=== PATIENT | male | born 1945 | race Caucasian/White ===

== ENCOUNTER 2019-08-10 12:13 | Inpatient (IN) | payer MEDICARE, BC ==
[2019-08-10 14:48] LABS: CKMB 3.2 ng/mL (0-6.6)
[2019-08-10] MEDS ORDERED: Acetaminophen 325 MG TAB PO PRN (16:31)
[2019-08-10] MEDS ORDERED: Ondansetron PF 4 MG/2 ML Vial IVP PRN (16:31)
--- NOTE | 2019-08-10 16:52 | PDOC.HHP ---
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 Pt never really had a down time, as his noted immediately when his heart stopped beating and he was started w chest compression at home. EMs showed up a few minutes later and he was taken and treated in [facility] with med mgt. Pt did not get an AICD, not sure why. He was d/c from the hospital to Rehab and d/c from Rehab last weekend. Pt stated he was doing well, till late in the night when he began having SOB, OSBORNE, Orthopnea and coughing. He was uncomfortable and coughed all night and had breathing issues. He denied CP, fever, feet or body swelling or chills. This morning, he called his PCP to complain about his symptoms ad he was told given his recent cardiac arrest he should come to the ER. Upon, presentation to the ER, his CXR noted vascular congestion. Pt was given Lasix and diuresed appropriately. He currently feels better He has been admitted now for further w/u. Hospitalist ROS - Review of Systems Constitutional: denies: fever, chills, sweats, weakness, malaise, other Eyes: denies: pain, vision change, conjunctivae inflammation, eyelid inflammation, redness, other ENT: denies: ear pain, ear discharge, nose pain, nose discharge, nose congestion , mouth pain, mouth swelling, throat pain, throat swelling, other Respiratory: reports: cough, shortness of breath, SOB with excertion. denies: dry, hemoptysis, pleuritic pain, sputum, wheezing, other Cardiovascular: denies: chest pain, palpitations, orthopnea, paroxysmal noc. dyspnea, edema, light headedness, other Gastrointestinal: denies: nausea, vomiting, abdominal pain, diarrhea, constipation, melena, hematochezia, other Genitourinary: denies: dysuria, frequency, incontinence, hematuria, retention, other Musculoskeletal: denies: neck pain, shoulder pain, arm pain, back pain, hand pain, leg pain, foot pain, other Skin: denies: rash, lesions, andrew, bruising, other Neurological: denies: weakness, numbness, incoordination, change in speech, confusion, seizures, other Hospitalist History - Past Medical History Cardiac: reports: CAD, CHF Pulmonary: reports: CVA/TIA/stroke, congestive heart failure - Family History Family History: reports: hypertension - Social History Alcohol: reports: None Living Situation: With Family Domestic Violence: Negative Activity level: independent ambulation - Exam General Appearance: NAD, awake alert Eye: PERRL, anicteric sclera ENT: normocephalic atraumatic, no oropharyngeal lesions, moist mucosa Neck: supple, symmetric, no JVD, no thyromegaly, no lymphadenopathy, no carotid bruit Heart: RRR, no murmur, no gallops, no rubs, normal peripheral pulses Respiratory: CTAB, no wheezes, no rales, no ronchi, normal chest expansion, no tachypnea, normal percussion Gastrointestinal: soft, non-tender, non-distended, normal bowel sounds, no palpable masses, no hepatomegaly, no splenomegaly, no bruit Extremities: no cyanosis, no clubbing, no edema Skin: normal turgor, no lesions, no rashes Neurological: cranial nerve grossly intact, normal sensation to touch, no weakness, no focal deficits, no new deficit Musculoskeletal: normal tone, normal strength, no muscle wasting Psychiatric: normal affect, normal behavior, A&O x 3 Hospitalist Results - Labs Lab results: CK-MB (CK-2) 3.2 ng/mL (0-6.6) 08/10/19 13:57 Troponin I 0.093 ng/mL (< 0.028) H 08/10/19 13:57 Hospitalist H&P A/P - Problem (1) CHF exacerbation Code(s): I50.9 - HEART FAILURE, UNSPECIFIED Status: Acute Assessment and Plan: Pt got Lasix in the ER and feels better. Will cont Lasix and other meds. Will get BNP and Echo and consult his english instructor, Dr Burgos. Will f/u with further recs from cardiology. (2) CAD (coronary artery disease) Code(s): I25.10 - ATHSCL HEART DISEASE OF [place] CORONARY ARTERY W/O ANG PCTRS Status: Acute Assessment and Plan: Pt denies CP but will order CE x 3. Will f/u with results. Cont med mgt (3) Dyslipidemia Code(s): E78.5 - HYPERLIPIDEMIA, UNSPECIFIED Status: Acute Assessment and Plan: Will check FLP. Cont statins. (4) Acute CVA (cerebrovascular accident) Code(s): I63.9 - CEREBRAL INFARCTION, UNSPECIFIED Status: Acute Assessment and Plan: No acute issues. Cont med mgt. (5) H/O ventricular fibrillation Code(s): Z86.79 - PERSONAL HISTORY OF OTHER DISEASES OF THE CIRCULATORY SYSTEM Status: Acute Assessment and Plan: Pt is stable now. Will monitor K and Mg levels, monitor on Tele. Pt may require an AICD. F/u with cardiac recs. - Plan Plan: PPX: Cont SCDs and Lovenox. CODE status: Full. Dispo: Admit as inpatient.
[2019-08-10 17:40] LABS: Cardiac Risk 4.7 (Less than 4.5)
[2019-08-10 17:43] LABS: Troponin I 0.084 ng/mL (< 0.028)
[2019-08-10] MEDS: Furosemide 40 MG/4 ML VIAL SLOW IVP SCH (21:29)
[2019-08-10] MEDS: Ezetimibe 10 MG TAB PO SCH (21:29)
[2019-08-10] MEDS: Atorvastatin Calcium 40 MG TAB PO SCH (21:30)
[2019-08-10 22:58] VITALS: BMI 26.8
[2019-08-11 00:59] LABS: #Basophils 0.1 thou/uL (0.0-0.2); #Eosinphils 0.2 thou/uL (0.0-0.7); #Lymphocytes 1.5 thou/uL (1.20-3.40); #Monocytes 0.9 thou/uL (0.11-0.59); #Neutrophils 7.3 thou/uL (1.40-6.50); %Basophils 0.8 % (0.0-1.0); %Eosinophils 1.8 % (0.0-10.0); %Lymphocytes 14.8 % (21.0-51.0); %Monocytes 8.8 % (0.0-10.0); %Neutrophils 73.8 % (42.0-75.0); Hemoglobin 10.3 g/dL (14.0-18.0); Mean Corpuscular HGB CONC 33.6 g/dL (32.0-36.0); Mean Corpuscular Hemoglobin 31.8 pg (27.0-31.0); Mean Corpuscular Volume 94.7 fL (78.0-98.0); Mean Platelet Volume 6.9 fL (7.4-10.4); Platelet Count 319 thou/uL (130-400); RBC Distribution Width 12.2 % (11.5-14.5); Red Blood Cell (RBC) Count 3.23 mill/uL (4.70-6.10); White Blood Cell (WBC) Count 9.8 thou/uL (4.8-10.8)
[2019-08-11 01:28] LABS: Anion Gap 14 mmol/L (10-20); BUN (Urea Nitrogen) 24 mg/dL (8.4-25.7); Calc. Creatinine Clearance 27 mL/min (70-130); Calcium 8.8 mg/dL (7.8-10.44); Carbon Dioxide 28 mmol/L (23-31); Chloride 99 mmol/L (98-107); Cholesterol 155 mg/dl (< 200 Desired); Estimated GFR-MDRD 22; Glucose 110 mg/dL (83-110); HDL Cholesterol 31 mg/dL (>60 Neg Risk); LDL Cholesterol, Calculated 102 mg/dL; Magnesium 1.7 mg/dL (1.6-2.6); Potassium 3.1 mmol/L (3.5-5.1); Sodium 138 mmol/L (136-145); Triglycerides 110 mg/dL (Less than 150)
[2019-08-11] MEDS ORDERED: Potassium Chloride 20 MEQ TAB PO SCH (02:15)
[2019-08-11] MEDS ORDERED: Enoxaparin Sodium 30 MG/0.3 ML SYRINGE SC SCH (09:00)
[2019-08-11] MEDS: Furosemide 40 MG/4 ML VIAL SLOW IVP SCH ×2 (09:50→20:43)
[2019-08-11] MEDS: Carvedilol 25 MG TAB PO SCH (09:50)
[2019-08-11] MEDS: Aspirin Chewable 81 MG TAB PO SCH (09:50)
[2019-08-11] MEDS: Ubidecarenone 50 MG CAP PO SCH (09:50)
[2019-08-11] MEDS: Fish Oil 1,000 MG CAP PO SCH (09:50)
--- NOTE | 2019-08-11 13:43 | CON ---
DATE OF CONSULTATION: 08/11/2019 INDICATION FOR CONSULTATION: A 74-year-old gentleman with ischemic cardiomyopathy, who had an [id number] arrest a couple weeks ago and had been in rehab since that time, was then discharged home. Yesterday evening before, he started noticing increasing coughing and not feeling well and then called his primary care physician, was advised to go back to the emergency room. He is being admitted at this time. I have followed this gentleman for many, many years. He does have an ischemic cardiomyopathy. He has done very well essentially despite being over multiple years refusing to have an AICD implant. He was visiting with family down in [place], and had actually been up quite late with enjoying being with the family and then went to bed and his actually woke up and noticed that he was gurgling and she called her son-in-law who did CPR on the patient. They were having a family get- together. There were multiple people in the house. He underwent CPR and was taken to the emergency room, apparently in [place]. He was there for a couple of days at least. He did not undergo, I believe, a cardiac catheterization, but he was intubated and then was thought to have encephalopathy, but fortunately then the patient woke up and does not appear to have any significant residual neurological deficits. He did have a CVA in the past, but has overcome that and at this time seems to be doing relatively well. Further evaluation in [place] did include CT scans and then the patient developed acute renal insufficiency and acute renal failure. Creatinine was up to 3, it is now improved some. His creatinine now is down to 2.89, but he still continues to have congestive heart failure as well as an elevated BNP. His troponin-Is are still slightly elevated, but are trending downward at 0.09, which may be due to his overall severe cardiomyopathy and the sudden cardiac that he had and the CPR which ensued. He denies any chest pain. He did have shortness of breath, but that has improved as he has been given diuretics. PAST MEDICAL HISTORY: Significant for; 1. Coronary artery disease with a bypass surgery in 2000. It was 5-vessel bypass with a MONTIEL to the diagonal branch and the LAD. It was a jump graft, I believe. He had a left radial artery to an obtuse marginal branch and saphenous vein graft to the right ventricular branch and saphenous vein graft to the distal right coronary artery. He underwent cardiac catheterization in 2011, which shows 3-vessel coronary artery disease with severe decrease in left ventricular systolic function and ejection fraction in 2011. I will have to review those cath films, but I believe the vessels are patent. 2. He also has a history of hyperlipidemia. 3. He has had a right and left wrist fractures. 4. He has sleep apnea. 5. Ejection fraction in the office last, I believe, in 2017, showed ejection fraction about 15% with [id number] mitral valve regurgitation, moderate tricuspid valve regurgitation, mild pulmonary valve regurgitation. 6. He has a history of a CVA in the past. SOCIAL HISTORY: He still lives at home with his . He has no alcohol abuse. I believe he did smoke in the past, I am not sure he is still smoking. FAMILY HISTORY: His mother of liver failure. His father had myocardial infarction. He has had siblings who also have hypercholesterolemia. ALLERGIES: NONE. MEDICATIONS: At this time, include; 1. Lasix 40 mg b.i.d. 2. Potassium 40 mEq a day. 3. Coenzyme Q. 4. Tylenol. 5. Zofran. 6. Aspirin 81 mg a day. 7. Lipitor 40 mg a day. 8. Coreg 25 mg, this was listed as once a day, but should be twice a day medication. 9. Lovenox 30 mg for DVT prophylaxis. 10. Fish oil. 11. Zetia 10 mg. Please also note that this gentleman has had problems with bleeding in the past when he was down in [place] or in [place]. At this time, he was placed on Lovenox or anticoagulation and then he had significant bleeding from the nose for several hours, which required intervention, and since that time, he has not tolerated the medicines very well, so we will need to be very careful when watching for bleeding episodes with the Lovenox despite being a low dose. REVIEW OF SYSTEMS: A 12-point review of systems is unremarkable except what was noted in the history of present illness. PHYSICAL EXAMINATION: GENERAL: A middle-aged gentleman who is in no acute distress at this time. He is alert. He is oriented. VITAL SIGNS: His blood pressure is 137/80, heart rate is 80 and shows a sinus rhythm. He is afebrile. Respiratory rate is 20. O2 saturation 95% on 2L. HEENT: Head is normocephalic and atraumatic. Carotid pulses were present. I did not hear any significant bruits at this time. CHEST: Some slight decreased breath sounds in the bases, but otherwise appears to be clear. I do not hear any rales, rhonchi, or wheezing. CARDIOVASCULAR: Regular rate and rhythm. He has normal S1 and S2. No S3 or S4. No significant murmurs, heaves, thrills, bruits, or rubs. ABDOMEN: Soft, flat, and nontender. Positive bowel sounds are present. EXTREMITIES: No clubbing or cyanosis. Pedal pulses difficult to palpate, but otherwise pulses are normal. There is no edema. NEUROLOGIC: He appears to be nonfocal at this time. He is alert. He is oriented. PSYCHOSOCIAL: He appears to be also within normal limits. SKIN: Warm and dry. LABORATORY DATA: Hemoglobin 10.3 with hematocrit of 30.5, WBC of 9.8, and platelet count was 319,000. His BNP was 2778. Sodium is 138, potassium 3.1, chloride was 91, bicarb was 28, BUN was 24 with a creatinine of 2.85, and blood sugar of 110. Troponin I as noted above. I did notice that his TSH is 5.39. IMPRESSION: 1. Aob-[id number] cardiac arrest, most likely due to ventricular tachycardia, which was then degenerated into ventricular fibrillation. With his history of severe cardiomyopathy, which is ischemic in nature, ejection fraction less than 20%. He has been advised on multiple occasions to undergo an automatic implantable cardioverter-defibrillator implant. At this time, he is now agreeable to proceed. I did discuss with him most likely we may need to go back and re-evaluate his coronary artery status to determine whether or not he has had any graft failure or further ischemic changes that may have provoked this, but unfortunately in the meantime, his creatinine is still elevated and he would be at risk of undergoing renal failure, so we cannot proceed with contrast at this time. I will discuss this case with security rover and likely proceed with a defibrillator despite having the known coronary artery disease without cardiac catheterization, but we will discuss this issue. Obviously, he is still at risk for undergoing further ischemic events. 2. History of cardiomyopathy, which is essentially unchanged. Echocardiogram is still pending. One was ordered for today and I will review that. 3. Dyslipidemia. We will continue on statins. 4. History of cerebrovascular accident in the past. He has had no acute events and the CAT scan or CT scan from [place] did not indicate any acute new findings. 5. History of tobacco abuse. I believe hopefully he would need to stop smoking. He has no alcohol use. 6. History of elevated TSH of 5.39. It appears that the patient may be hypothyroid. We will leave this up to the discretion of the primary care service. Further care of the patient will be based on whether or not we can proceed with cardiac catheterization in the next few days or whether or not we will proceed with the Automatic implantable cardioverter-defibrillator. We will certainly ask the security rover to review this case. Job ID: [id number] MTDD
--- NOTE | 2019-08-11 17:02 | PDOC.HOSPP ---
- Subjective Encounter Date: 08/11/19 Encounter Time: 17:00 Subjective: f/u for V-tach/fib in context of known ICM with EF 15%. Plan for AICD placement but unable to complete heart cath prior due to CKD. - Objective Vital Signs & Weight: Vital Signs (12 hours) Temp Pulse Pulse Pulse Resp BP BP 08/11/19 15:17 98.6 F 66 15 08/11/19 11:56 56 L 20 08/11/19 11:44 70 59 L 118/74 116/67 08/11/19 08:04 97.5 F L 83 20 BP Pulse Ox 08/11/19 15:17 135/75 97 08/11/19 11:56 118/74 96 08/11/19 11:44 08/11/19 08:04 137/80 95 Weight Weight 184 lb 3.2 oz I&O: 08/10/19 08/11/19 08/12/19 06:59 06:59 06:59 Intake Total 510 Output Total 1250 Balance -740 Result Diagrams: 08/11/19 00:51 08/11/19 00:51 Additional Labs: Laboratory Tests 02/17/18 08/10/19 08/10/19 06:38 09:50 13:57 Creatinine 0.97 2.86 H Troponin I 0.093 H B-Natriuretic Peptide TSH 3rd Generation 08/10/19 08/11/19 08/11/19 17:09 00:51 00:51 Creatinine Troponin I 0.084 H B-Natriuretic Peptide 2778.5 H TSH 3rd Generation 5.3930 H Radiology Reviewed by me: Yes (2D echo = EF15%, mod-severe MR, NESHA) EKG Reviewed by me: Yes (Tele - SR in 50's) Hospitalist ROS - Medication Medications: Active Medications Generic Name Dose Route Start Last Admin Trade Name Freq PRN Reason Stop Dose Admin Aspirin 81 mg 08/11/19 09:00 08/11/19 09:50 Aspirin Chewable PO 81 mg DAILY BRISSA Administration Atorvastatin Calcium 40 mg 08/10/19 21:00 08/10/19 21:30 Lipitor PO 40 mg HS BRISSA Administration Carvedilol 25 mg 08/11/19 09:00 08/11/19 09:50 Coreg PO 25 mg DAILY BRISSA Administration Coenzyme Q10 100 mg 08/11/19 09:00 08/11/19 09:50 Coenzyme Q10 PO 100 mg DAILY BRISSA Administration Ezetimibe 10 mg 08/10/19 21:00 08/10/19 21:29 Zetia PO 10 mg HS BRISSA Administration Enoxaparin Sodium 30 mg 08/11/19 09:00 08/11/19 09:50 Lovenox SC 30 mg 0900 BRISSA Administration Fish Oil 1,000 mg 08/11/19 09:00 08/11/19 09:50 Fish Oil PO 1,000 mg DAILY BRISSA Administration Furosemide 40 mg 08/10/19 21:00 08/11/19 09:50 Lasix SLOW IVP 40 mg BID BRISSA Administration - Exam General Appearance: NAD, awake alert Eye: PERRL, anicteric sclera ENT: normocephalic atraumatic, no oropharyngeal lesions Neck: supple, symmetric, no JVD, no thyromegaly Heart: RRR, no gallops, no rubs, normal peripheral pulses Respiratory: CTAB, no wheezes, no rales, no ronchi, normal chest expansion Gastrointestinal: soft, non-tender, non-distended, normal bowel sounds, no palpable masses Extremities: no cyanosis, no clubbing Skin: normal turgor, no lesions Neurological: cranial nerve grossly intact, no new deficit Musculoskeletal: normal tone Psychiatric: normal affect, A&O x 3 Hosp A/P (1) Ventricular tachyarrhythmia Code(s): I47.2 - VENTRICULAR TACHYCARDIA Status: Acute Plan: Plan for AICD in am, Continue Coreg (2) Ischemic cardiomyopathy Code(s): I25.5 - ISCHEMIC CARDIOMYOPATHY Status: Chronic Plan: EF 15%, plan for AICD in am (3) MITCH (acute kidney injury) Code(s): N17.9 - ACUTE KIDNEY FAILURE, UNSPECIFIED Status: Acute Plan: Likely due to CHF and iatrogenic, avoid nephrotoxic agents and limit contrast exposure, serial creatinine (4) CAD (coronary artery disease) Code(s): I25.10 - ATHSCL HEART DISEASE OF [place] CORONARY ARTERY W/O ANG PCTRS Status: Chronic Plan: ASA/Lipitor/Coreg (5) Dyslipidemia Code(s): E78.5 - HYPERLIPIDEMIA, UNSPECIFIED Status: Chronic Plan: Lipitor 80mg HS - Plan out of bed/ambulate, DVT proph w/SCDs Stable currently NPO after MN Plan for AICD in am Continue Coreg Appreciate Cardiology assistance AM labs: BMP, CBC
[2019-08-11] MEDS: Ezetimibe 10 MG TAB PO SCH (20:43)
[2019-08-11] MEDS: Atorvastatin Calcium 40 MG TAB PO SCH (20:43)
[2019-08-12 05:17] LABS: #Basophils 0.1 thou/uL (0.0-0.2); #Eosinphils 0.2 thou/uL (0.0-0.7); #Lymphocytes 1.7 thou/uL (1.20-3.40); #Monocytes 0.6 thou/uL (0.11-0.59); #Neutrophils 5.5 thou/uL (1.40-6.50); %Basophils 0.8 % (0.0-1.0); %Lymphocytes 20.6 % (21.0-51.0); %Monocytes 7.3 % (0.0-10.0); %Neutrophils 68.4 % (42.0-75.0); Hemoglobin 10.1 g/dL (14.0-18.0); Mean Corpuscular HGB CONC 34.4 g/dL (32.0-36.0); Mean Corpuscular Hemoglobin 32.2 pg (27.0-31.0); Mean Corpuscular Volume 93.4 fL (78.0-98.0); Mean Platelet Volume 7.7 fL (7.4-10.4); Platelet Count 326 thou/uL (130-400); RBC Distribution Width 12.3 % (11.5-14.5); Red Blood Cell (RBC) Count 3.14 mill/uL (4.70-6.10); White Blood Cell (WBC) Count 8.1 thou/uL (4.8-10.8)
[2019-08-12 05:34] LABS: Anion Gap 14 mmol/L (10-20); BUN (Urea Nitrogen) 26 mg/dL (8.4-25.7); Calc. Creatinine Clearance 28 mL/min (70-130); Calcium 8.8 mg/dL (7.8-10.44); Carbon Dioxide 27 mmol/L (23-31); Chloride 98 mmol/L (98-107); Estimated GFR-MDRD 23; Glucose 97 mg/dL (83-110); Potassium 3.3 mmol/L (3.5-5.1); Sodium 136 mmol/L (136-145)
[2019-08-12] MEDS: Carvedilol 25 MG TAB PO SCH (08:44)
[2019-08-12] MEDS: Furosemide 40 MG/4 ML VIAL SLOW IVP SCH ×3 (08:44→20:33)
[2019-08-12] MEDS: Fish Oil 1,000 MG CAP PO SCH (08:44)
[2019-08-12] MEDS: Ubidecarenone 50 MG CAP PO SCH (08:44)
[2019-08-12] MEDS: Aspirin Chewable 81 MG TAB PO SCH (08:44)
[2019-08-12] MEDS ORDERED: Iopamidol 370 76% 50 ML VIAL FS ONE (15:11)
[2019-08-12] MEDS ORDERED: Midazolam HCl 2 mg/2 ml Vial ONE (15:31)
[2019-08-12] MEDS ORDERED: Fentanyl 100 MCG/2 ML VIAL ONE (15:31)
--- NOTE | 2019-08-12 17:36 | PDOC.HOSPP ---
- Subjective Encounter Date: 08/12/19 Encounter Time: 17:30 Subjective: f/u s/p AICD placement today with know CM EF 15-20%. - Objective Vital Signs & Weight: Vital Signs (12 hours) Temp Pulse Resp BP Pulse Ox 08/12/19 15:24 98.3 F 58 L 20 131/70 94 L 08/12/19 11:45 97.7 F 70 20 114/65 95 08/12/19 08:00 92 L 08/12/19 07:38 98.0 F 65 16 141/70 H 92 L 08/12/19 06:11 94 L Weight Weight 179 lb 6.4 oz I&O: 08/11/19 08/12/19 08/13/19 06:59 06:59 06:59 Intake Total 510 800 Output Total 1250 Balance -740 800 Result Diagrams: 08/12/19 04:11 08/12/19 04:11 Additional Labs: Laboratory Tests 02/17/18 08/10/19 08/10/19 06:38 09:50 13:57 Creatinine 0.97 2.86 H Troponin I 0.093 H B-Natriuretic Peptide TSH 3rd Generation 08/10/19 08/11/19 08/11/19 17:09 00:51 00:51 Creatinine Troponin I 0.084 H B-Natriuretic Peptide 2778.5 H TSH 3rd Generation 5.3930 H Radiology Reviewed by me: Yes (Echo - EF 15-20%, NESHA) EKG Reviewed by me: Yes (Tele - sinus bradycardia) Hospitalist ROS - Medication Medications: Active Medications Generic Name Dose Route Start Last Admin Trade Name Freq PRN Reason Stop Dose Admin Aspirin 81 mg 08/11/19 09:00 08/12/19 08:44 Aspirin Chewable PO 81 mg DAILY BRISSA Administration Atorvastatin Calcium 40 mg 08/10/19 21:00 08/11/19 20:43 Lipitor PO 40 mg HS BRISSA Administration Carvedilol 25 mg 08/11/19 09:00 08/12/19 08:44 Coreg PO 25 mg DAILY BRISSA Administration Coenzyme Q10 100 mg 08/11/19 09:00 08/12/19 08:44 Coenzyme Q10 PO 100 mg DAILY BRISSA Administration Ezetimibe 10 mg 08/10/19 21:00 08/11/19 20:43 Zetia PO 10 mg HS BRISSA Administration Enoxaparin Sodium 30 mg 08/11/19 09:00 08/11/19 09:50 Lovenox SC 30 mg 0900 BRISSA Administration Fish Oil 1,000 mg 08/11/19 09:00 08/12/19 08:44 Fish Oil PO 1,000 mg DAILY BRISSA Administration Furosemide 40 mg 08/10/19 21:00 08/12/19 08:44 Lasix SLOW IVP 40 mg BID BRISSA Administration - Exam General Appearance: NAD, awake alert Eye: PERRL, anicteric sclera ENT: normocephalic atraumatic, no oropharyngeal lesions Neck: supple, symmetric, no JVD, no thyromegaly Heart: RRR, no gallops, no rubs, normal peripheral pulses Respiratory: no ronchi Respiratory - other findings: diminished in bases Gastrointestinal: soft, non-tender, non-distended, normal bowel sounds Extremities: no cyanosis, no clubbing, no edema Skin: normal turgor, no lesions Neurological: cranial nerve grossly intact, no new deficit Musculoskeletal: normal tone, normal strength Psychiatric: normal affect, A&O x 3 Hosp A/P (1) Ventricular tachyarrhythmia Code(s): I47.2 - VENTRICULAR TACHYCARDIA Status: Acute Plan: s/p AICD 08/12/19, continue tele monitoring overnight (2) Ischemic cardiomyopathy Code(s): I25.5 - ISCHEMIC CARDIOMYOPATHY Status: Chronic Plan: EF 15-20%, continue medical mgmt (3) MITCH (acute kidney injury) Code(s): N17.9 - ACUTE KIDNEY FAILURE, UNSPECIFIED Status: Acute Plan: Avoid nephrotoxic meds and limit contrast exposure, serial creatinine (4) CAD (coronary artery disease) Code(s): I25.10 - ATHSCL HEART DISEASE OF [place] CORONARY ARTERY W/O ANG PCTRS Status: Chronic Plan: Continue ASA/Lipitor/Coreg (5) Dyslipidemia Code(s): E78.5 - HYPERLIPIDEMIA, UNSPECIFIED Status: Chronic - Plan continue antibiotics, social media project manager, out of bed/ambulate, DVT proph w/SCDs Stable currently s/p AICD placement 08/12/19 Continue Coreg/ASA/Lipitor Appreciate Cardiology assistance Likely home in am 08/13/19
[2019-08-12] MEDS ORDERED: Acetaminophen/Codeine 30-300mg Tablet PO PRN ×2 (18:00)
--- NOTE | 2019-08-12 18:11 | PDOC.CPN ---
- Subjective Date: 08/12/19 Time: 08:30 Interval history: The pt seen and examined. No overnight events. No cardiac complaints. - Objective Allergies/Adverse Reactions: Allergies Allergy/AdvReac Type Severity Reaction Status Date / Time No Known Drug Allergies Allergy Verified 08/10/19 21:58 Visit Medications: Current Medications Acetaminophen (Tylenol) 650 mg PO Q4H PRN PRN Reason: Headache/Fever/Mild Pain (1-3) Acetaminophen/Codeine Phosphate (Tylenol #3) 1 tab PO Q4H PRN PRN Reason: Mild Pain (1-3) Acetaminophen/Codeine Phosphate (Tylenol #3) 2 tab PO Q4H PRN PRN Reason: Moderate Pain (4-6) Aspirin (Aspirin Chewable) 81 mg PO DAILY [facility] Last Admin: 08/12/19 08:44 Dose: 81 mg Atorvastatin Calcium (Lipitor) 40 mg PO HS [facility] Last Admin: 08/11/19 20:43 Dose: 40 mg Carvedilol (Coreg) 25 mg PO DAILY [facility] Last Admin: 08/12/19 08:44 Dose: 25 mg Cephalexin (Keflex) 500 mg PO Q6HR [facility] Stop: 08/19/19 12:01 Coenzyme Q10 (Coenzyme Q10) 100 mg PO DAILY [facility] Last Admin: 08/12/19 08:44 Dose: 100 mg Ezetimibe (Zetia) 10 mg PO HS [facility] Last Admin: 08/11/19 20:43 Dose: 10 mg Enoxaparin Sodium (Lovenox) 30 mg SC 0900 [facility] Last Admin: 08/11/19 09:50 Dose: 30 mg Fish Oil (Fish Oil) 1,000 mg PO DAILY [facility] Last Admin: 08/12/19 08:44 Dose: 1,000 mg Furosemide (Lasix) 40 mg SLOW IVP BID [facility] Last Admin: 08/12/19 08:44 Dose: 40 mg Ondansetron HCl (Zofran) 4 mg IVP Q6H PRN PRN Reason: Nausea/Vomiting Sodium Chloride (Flush - Normal Saline) 10 ml IVF Q12HR [facility] Sodium Chloride (Flush - Normal Saline) 10 ml IVF PRN PRN PRN Reason: Saline Flush Vital Signs & Weight: Vital Signs Temp Pulse Resp BP Pulse Ox 08/12/19 15:24 98.3 F 58 L 20 131/70 94 L 08/12/19 11:45 97.7 F 70 20 114/65 95 08/12/19 08:00 92 L 08/12/19 07:38 98.0 F 65 16 141/70 H 92 L 08/12/19 06:11 94 L Weight 179 lb 6.4 oz - Physical Exam General: alert & oriented x3 HEENT: mucus membranes moist Neck: supple neck Cardiac: regular rate and rhythm, S1/S2 Lungs: decreased breath sounds Neuro: cranial nerve 2-12 intact Skin: clear - Labs Result Diagrams: 08/12/19 04:11 08/12/19 04:11 Troponin/CKMB CK-MB (CK-2) 3.2 ng/mL (0-6.6) 08/10/19 13:57 Troponin I 0.084 ng/mL (< 0.028) H 08/10/19 17:09 - Telemetry Sinus rhythms and dysrhythmias: sinus rhythm - Assessment/Plan Assessment/Plan: 1. S/p out hospital Cardiac arrest with s/p AICD 08/12/19 - possible further cardiac workup when Renal function is stable; 2. Ischemic CMY with s/p AICD on 08/12/2019 - 3. Chronic systolic HF with EF 15-20% - Stable with Lasix IV BID and Coreg, but no LEV/ARB due to CKD 4. CAD with hx of CABG - stable; on Coreg, ASA, statin 5. MITCH on CKD - 6. HLD - on statin MAR reviewed * Echo on 08/11/2019 with EF 15-20%, severe LVH, mod ERA, mod-severe MR, and mild TR and ID Pt. seen and eval. by me. I agree with the A/P by the RETAIL PLANNER. He had the AICD implanted earlier today and is stable. Renal function is stable but not back to baseline. Chest clear. RRR.No edema.
[2019-08-12] MEDS: Ezetimibe 10 MG TAB PO SCH ×2 (20:30→20:35)
[2019-08-12] MEDS: Cephalexin 250 MG CAP PO SCH ×3 (20:30→23:35)
[2019-08-12] MEDS: Atorvastatin Calcium 40 MG TAB PO SCH ×2 (20:30→20:35)
[2019-08-13] MEDS: Cephalexin 250 MG CAP PO SCH ×2 (05:01→11:54)
[2019-08-13 05:42] LABS: #Eosinphils 0.2 thou/uL (0.0-0.7); #Lymphocytes 1.7 thou/uL (1.20-3.40); #Monocytes 0.8 thou/uL (0.11-0.59); #Neutrophils 6.8 thou/uL (1.40-6.50); %Basophils 0.4 % (0.0-1.0); %Lymphocytes 17.6 % (21.0-51.0); %Monocytes 8.5 % (0.0-10.0); %Neutrophils 71.4 % (42.0-75.0); Hemoglobin 10.8 g/dL (14.0-18.0); Mean Corpuscular HGB CONC 33.9 g/dL (32.0-36.0); Mean Corpuscular Hemoglobin 31.6 pg (27.0-31.0); Mean Platelet Volume 7.4 fL (7.4-10.4); Platelet Count 342 thou/uL (130-400); RBC Distribution Width 12.3 % (11.5-14.5); Red Blood Cell (RBC) Count 3.42 mill/uL (4.70-6.10); White Blood Cell (WBC) Count 9.5 thou/uL (4.8-10.8)
[2019-08-13 06:08] LABS: Anion Gap 15 mmol/L (10-20); BUN (Urea Nitrogen) 32 mg/dL (8.4-25.7); Calc. Creatinine Clearance 28 mL/min (70-130); Calcium 8.6 mg/dL (7.8-10.44); Carbon Dioxide 27 mmol/L (23-31); Chloride 97 mmol/L (98-107); Estimated GFR-MDRD 23; Glucose 98 mg/dL (83-110); Potassium 3.7 mmol/L (3.5-5.1); Sodium 135 mmol/L (136-145)
[2019-08-13] MEDS: Fish Oil 1,000 MG CAP PO SCH (09:46)
[2019-08-13] MEDS: Carvedilol 25 MG TAB PO SCH (09:46)
[2019-08-13] MEDS: Aspirin Chewable 81 MG TAB PO SCH (09:46)
[2019-08-13] MEDS: Furosemide 40 MG/4 ML VIAL SLOW IVP SCH (09:47)
[2019-08-13] MEDS: Ubidecarenone 50 MG CAP PO SCH (09:47)
--- NOTE | 2019-08-13 11:29 | PDOC.CPN ---
- Subjective Date: 08/13/19 Time: 11:28 Interval history: The pt seen and examined. No overnight events. No cardiac complaints. - Objective Allergies/Adverse Reactions: Allergies Allergy/AdvReac Type Severity Reaction Status Date / Time No Known Drug Allergies Allergy Verified 08/10/19 21:58 Visit Medications: Current Medications Acetaminophen (Tylenol) 650 mg PO Q4H PRN PRN Reason: Headache/Fever/Mild Pain (1-3) Acetaminophen/Codeine Phosphate (Tylenol #3) 1 tab PO Q4H PRN PRN Reason: Mild Pain (1-3) Acetaminophen/Codeine Phosphate (Tylenol #3) 2 tab PO Q4H PRN PRN Reason: Moderate Pain (4-6) Aspirin (Aspirin Chewable) 81 mg PO DAILY [facility] Last Admin: 08/13/19 09:46 Dose: 81 mg Atorvastatin Calcium (Lipitor) 40 mg PO HS [facility] Last Admin: 08/12/19 20:35 Dose: Not Given Carvedilol (Coreg) 25 mg PO DAILY [facility] Last Admin: 08/13/19 09:46 Dose: 25 mg Cephalexin (Keflex) 500 mg PO Q6HR [facility] Stop: 08/19/19 12:01 Last Admin: 08/13/19 05:01 Dose: 500 mg Coenzyme Q10 (Coenzyme Q10) 100 mg PO DAILY [facility] Last Admin: 08/13/19 09:47 Dose: 100 mg Ezetimibe (Zetia) 10 mg PO HS [facility] Last Admin: 08/12/19 20:35 Dose: Not Given Enoxaparin Sodium (Lovenox) 30 mg SC 0900 [facility] Last Admin: 08/11/19 09:50 Dose: 30 mg Fish Oil (Fish Oil) 1,000 mg PO DAILY [facility] Last Admin: 08/13/19 09:46 Dose: 1,000 mg Furosemide (Lasix) 40 mg SLOW IVP BID [facility] Last Admin: 08/13/19 09:47 Dose: 40 mg Ondansetron HCl (Zofran) 4 mg IVP Q6H PRN PRN Reason: Nausea/Vomiting Sodium Chloride (Flush - Normal Saline) 10 ml IVF Q12HR [facility] Last Admin: 08/13/19 09:47 Dose: 10 ml Sodium Chloride (Flush - Normal Saline) 10 ml IVF PRN PRN PRN Reason: Saline Flush Vital Signs & Weight: Vital Signs Temp Pulse Resp BP Pulse Ox 08/13/19 07:08 97.7 F 59 L 16 138/71 94 L 08/13/19 04:00 97.6 F 94 16 127/62 93 L Weight 179 lb 6.4 oz - Physical Exam General: alert & oriented x3 HEENT: mucus membranes moist Neck: supple neck Cardiac: regular rate and rhythm, S1/S2 Lungs: clear to auscultation Neuro: cranial nerve 2-12 intact - Labs Result Diagrams: 08/13/19 04:48 08/13/19 04:48 Troponin/CKMB CK-MB (CK-2) 3.2 ng/mL (0-6.6) 08/10/19 13:57 Troponin I 0.084 ng/mL (< 0.028) H 08/10/19 17:09 - Telemetry Sinus rhythms and dysrhythmias: sinus rhythm - Assessment/Plan Assessment/Plan: 1. S/p out hospital Cardiac arrest with s/p AICD 08/12/19 - possible further cardiac workup when Renal function is back to his baseline; 2. Ischemic CMY with s/p AICD on 08/12/2019 - 3. Chronic systolic HF with EF 15-20% - Stable with Lasix IV BID and Coreg, but no LEV/ARB due to CKD 4. CAD with hx of CABG - stable; on Coreg, ASA, statin 5. MITCH on CKD - 6. HLD - on statin MAR reviewed * Echo on 08/11/2019 with EF 15-20%, severe LVH, mod ERA, mod-severe MR, and mild TR and NV Pt. seen and eval. by me. I agree with the A/P by the BALL WINDER. He is doing well s/p AICD. Ready to d/c. I will see him back in 2-4 weeks.
[2019-08-13 12:37] VITALS: TEMP 97.8
--- NOTE | 2019-08-13 13:21 | RAD ---
PORTABLE CHEST: Date: 08/13/19 PROVIDED CLINICAL HISTORY: Post ICD placement. FINDINGS: Comparison with 08/10/19. Cardiac silhouette remains enlarged. Median sternotomy changes are again seen. Obscuration of the lef t hemidiaphragm persists. Interval placement of left subclavian cardiac pacing device, lead tip of wh ich overlies the expected location of RV. There is no evidence for pneumothorax. IMPRESSION: Interval cardiac pacing device placement with apparent complication. Otherwise stable exam. POS: OFF
--- NOTE | 2019-08-13 13:45 | CON ---
DATE OF CONSULTATION: 08/11/2019 Dictated by ERNIE Zheng, as scribe for Dr. Arenas. REASON FOR CONSULTATION: ICD consideration and cardiomyopathy. HISTORY OF PRESENT ILLNESS: Mr. Pichardo is a 74-year-old gentleman with a longstanding history of ischemic cardiomyopathy, who has been considered for an ICD repeatedly. In the past, he has declined AICD implant. He had an iph-me-kquyyada arrest while in [place] in the past and had family initiated CPR. 911 was called. It is unclear if this was cardiac arrest. He does not recall any mention of the events surrounding that day. He is unsure of the workup that was done while he was at the hospital, but does not recall a left heart catheterization being done. He was placed on mexiletine. He was discharged to rehab and then discharged home. On the evening of the , he started noticing increased coughing and feeling poorly and his primary care provider advised him to go back to the emergency room. Given his sudden cardiac and his severe cardiomyopathy, he is willing to consider an AICD at this time, prompting an EP consultation. He is a long-time patient of Dr. Burgos. Currently, Mr. Pichardo is feeling well. He denies any chest pain, palpitations, heart racing, syncope, near syncope, stroke, or stroke-like symptoms. He has been having some shortness of breath, but that has greatly improved with the administration of Lasix and he is now able to lie flat and breathe comfortably. REVIEW OF SYSTEMS: A 12-point review of systems is conducted and is negative except that listed above in the HPI. PAST MEDICAL HISTORY: 1. Coronary artery disease with bypass surgery in 2000, 5-vessel bypass. 2. Hyperlipidemia. 3. Sleep apnea. 4. Wrist fractures bilaterally. 5. Ischemic cardiomyopathy, ejection fraction 15% in 2017. 6. Uypuwvwa-pe-sacoga mitral regurgitation, moderate tricuspid valve regurgitation, mild pulmonary valve regurgitation. 7. Cerebrovascular accident. SOCIAL HISTORY: Lives at home with his . No alcohol or illicit drug use. He has a history of tobacco use. FAMILY HISTORY: Father of myocardial infarction. Mother passed from liver failure. ALLERGIES: NO KNOWN DRUG ALLERGIES. HOME MEDICATIONS: Include; 1. Lisinopril 20 mg daily. 2. Atorvastatin calcium 80 mg nightly. 3. Vytorin q.p.m. 4. Carvedilol 25 mg daily. 5. Aspirin 325 mg daily. 6. CoQ10 daily. 7. [place]-3 fish oil daily. OBJECTIVE: VITAL SIGNS: Temperature 97.5, pulse 83, blood pressure 137/80, respirations 20, and oxygen is 95% on 2L via nasal cannula. GENERAL: The patient is alert and oriented. Speech is clear. Affect is appropriate. He is in no apparent distress at the time of exam. Resting comfortably in bed. NECK: Supple with mild jugular venous distention and hepatojugular reflux is positive. There is no lymphadenopathy and no carotid bruits. LUNGS: Clear to auscultation bilaterally. Respirations are even and unlabored with good bilateral excursion. HEART: Rate is irregularly irregular with S1 and S2. PMI is nonpalpable. ABDOMEN: Obese, soft, and nontender without palpable masses. EXTREMITIES: Warm and dry to touch and well perfused without clubbing, cyanosis , or edema. NEUROLOGIC: Grossly intact and nonfocal. Gait was not assessed. The patient moves easily in bed. LABORATORY: Hematology, unremarkable. Chemistry; potassium 3.1, creatinine 2.85. Troponin peaked at 0.093. BNP 2778. TSH 5.39. Magnesium 1.7. Echocardiogram; ejection fraction 15% to 20%, unchanged since last exam in 2017. Moderately enlarged right atrium. Left atrium is severely dilated. IMPRESSION: 1. Ischemic cardiomyopathy with severely reduced ejection fraction despite medical management for at least 2 years. 2. Recent rls-ee-chvfyvxc arrest, possibly due to ventricular tachycardia given his history of ischemic cardiomyopathy. 3. Zdueu-hl-obhsvtx renal insufficiency. PLAN AND RECOMMENDATIONS: Mr. Pichardo is a pleasant 74-year-old gentleman with longstanding history of ischemic cardiomyopathy with severely reduced ejection fraction, it is under 30%. Ejection fraction is essentially unchanged since 2017 despite medical management. He has been talked to about ICD implants for sometime now, but he is now willing to consider ICD therapy. This is certainly reasonable in light of his aiw-jx-xixgsbiy arrest, which he recently suffered. We discussed the risks, benefits, and alternatives to ICD implant. Risks including pain versus swelling, infection, pneumothorax, pericardial effusion, lead dislodgement, possible need for lead revision and/or device explant. He is now willing to proceed with ICD implant. This will be placed as primary prevention for sudden cardiac in the setting of severe cardiomyopathy. At this point, he appears to be diuresed adequately and his shortness of breath has resolved. We will make arrangements possibly for tomorrow for ICD implant. Thank you for allowing me to participate in the care of this patient. Job ID: [id number] MTDD
[2019-08-13 15:53] VITALS: BP 136/72
--- NOTE | 2019-08-16 05:16 | PQF ---
SAP Roper Operator Crystal Reports Winform ViewerYAMINISYLVAIN NGOC SCHWAB NP [id number] [facility] [id number] CLINICAL DOCUMENTATION CLARIFICATION FORM: POST DISCHARGE Addendum to original discharge summary date: ____ Late entry note date: __ DATE: 08/16/2019 ATTN:NGOC LAGUNAS NP Please exercise your independent, professional judgment in responding to the clarification form. Clinical indicators are provided on the bottom of this form for your review Please check appropriate box(s): Conflicting documentation was noted in the Medical Record, please clarify if patient is being treated/monitored for: [ ] CHF exacerbation Type [ ]Systolic [ ]Diastolic [ x ] Chronic systolic CHF [x ] Other diagnosis _Ischemic CMY, S/p out of hospital Cardiac arrest [ ] Unable to determine In addition, please specify: Present on Admission (POA): [x ] Yes [ ] No [ ] Unable to determine For continuity of documentation, please document condition throughout progress notes and discharge summary. Thank You. CLINICAL INDICATORS - SIGNS / SYMPTOMS/ LABS Ejection fraction 15-20% - Documented in 08/13 by Cardiology PNs on NGOC LAGUNAS NP Chronic Systolic CHF - Documented in 08/13 by Cardiology PNs on NGOC LAGUNAS NP CHF Exacerbation - Documented in H&P on 08/10 by Valdo Rush MD Pt got Lasix the ER and feel better - Documented in 08/13 by Cardiology PNs on NGOC LAGUNAS NP Elevated BNP 2778.5 on 08/11 - Documented in Laboratory RISK FACTORS CAD Ischemic cardiomyopathy - Documented in 08/13 by Cardiology PNs on NGOC LAGUNAS NP HTN Ventricular tachycardia TREATMENT Stable with Lasix IV BID and Coreg - Documented in 08/13 by Cardiology PNs on NGOC LAGUNAS NP AICD has done Echocardiogram SAP Roper Operator Crystal Reports Winform Viewer (This form is maintained as a part of the permanent medical record) 2014 [email or web address] All Rights Reserved [email or web address] [not provided] MTDD
--- NOTE | 2019-08-16 08:35 | DIS ---
DATE OF ADMISSION: 08/11/2019 DATE OF DISCHARGE: 08/13/2019 DISCHARGE DIAGNOSES: 1. Ischemic cardiomyopathy with ejection fraction of 15% to 20%. 2. Ventricular tachyarrhythmia. 3. Acute kidney injury. 4. Coronary artery disease. 5. Dyslipidemia. 6. Stlvkzkl-av-ripzyf mitral regurgitation. 7. Recent ventricular fibrillation cardiac arrest. 8. Status post AICD placement. 9. Chronic systolic heart failure with ejection fraction of 15 to 20. 10. Chronic kidney disease, stage 3. 11. Severe left ventricular hypertrophy. 12. Mild tricuspid regurgitation. CONSULT: 1. Cardiology. 2. Electrophysiology. HOSPITAL COURSE: A 74-year-old male with known history of systolic heart failure; coronary artery disease, status post CABG, who recently was admitted to an outside hospital in [place] after a VFib cardiac arrest. AICD placement was recommended, but patient declined preferring to see his usual Cardiology. Patient also was started on lisinopril after the cardiac arrest. He returned to the hospital with worsening shortness of breath associated with cough as well as dyspnea on exertion and orthopnea. Impression of acute on chronic systolic heart failure was made and patient was started on diuretics with improvement in symptoms. Given recent dqe-fw-vclekqtm cardiac arrest due to ventricular fibrillation, Cardiology consult was obtained and Electrophysiology was subsequently consulted and patient had AICD placement as recommended. He, however, was found to have acute increase in creatinine, which was above his usual baseline. Etiology is unclear, but it was felt to be related to recent cardiac arrest as well as recent commencement of LEV inhibitor. Nephrotoxic agents were held, including LEV inhibitors, and Cardiology was contemplating cardiac catheterization, but due to acute on chronic renal failure that was postponed at this time. Patient remained stable and was subsequently discharged home. Patient was instructed to follow up with campus chaplain of his choice and list was provided. OBJECTIVE: VITAL SIGNS: Temperature 97.8, pulse 63, respiratory rate 16, SpO2 of 93% on room air, and blood pressure is 119/63. GENERAL: Elderly male, in no distress. Afebrile. Anicteric. Acyanotic. HEENT: Normocephalic, atraumatic. Oral mucosa is moist. CARDIOVASCULAR: Regular rhythm and rate. Normal heart sounds 1 and 2. Systolic murmur noted. RESPIRATORY: Fair air entry bilaterally with few bibasilar crackles. Work of breathing is not increased. GI: Full, soft, nontender, nondistended with normal bowel sounds. EXTREMITIES: Grossly normal looking, atraumatic with no edema or erythema. FORENSIC ANALYST: Conscious, alert, oriented x3 with appropriate mental status. Cranial nerves 2 through 12 are grossly intact. Patient moves all extremities. DISCHARGE CONDITION: Improved. DISCHARGE DISPOSITION: Home. FOLLOWUP: 1. Follow up with campus chaplain of discharge in 1 to 2 weeks. 2. Follow up with metal tank builder in 2 to 3 weeks. 3. PCP in 1 week. DISCHARGE MEDICATIONS: 1. Aspirin 325 mg p.o. daily. 2. Carvedilol 25 mg b.i.d. 3. Vytorin 10/80 mg 1 tablet q.p.m. 4. Acetaminophen 650 mg p.o. q.4 p.r.n. 5. Cephalexin 500 mg for 7 days. 6. Lasix 40 mg p.o. b.i.d. 7. [place]-3 fatty acids one capsule p.o. daily. 8. CoQ10 of 200 mg p.o. daily. This discharge took more than 38 minutes. Job ID: [id number]
== END 2019-08-13 14:33 | disposition home or self-care (01) | DRG 226 ==
LOC: ERS 12:13 → 2SW 14:16 → OBSVTOIN 08-11 18:01
PROVIDERS: ADMIT Hospitalist; ATTEND Hospitalist
PROC: 0JH608Z Insertion of Defibrillator Generator into Chest Subcutaneous Tissue and Fascia, Open Approach (ICD-10-PCS; principal; 2019-08-12)
PROC: 02HK3KZ Insertion of Defibrillator Lead into Right Ventricle, Percutaneous Approach (ICD-10-PCS; 2019-08-12)
DX: I25.5 Ischemic cardiomyopathy (principal); I49.01 Ventricular fibrillation; I47.2 Ventricular tachycardia; I13.0 Hypertensive heart and chronic kidney disease with heart failure and stage 1 through stage 4 chronic kidney disease, or unspecified chronic kidney disease; N17.9 Acute kidney failure, unspecified; I50.22 Chronic systolic (congestive) heart failure; I25.10 Atherosclerotic heart disease of native coronary artery without angina pectoris; E78.5 Hyperlipidemia, unspecified; G47.00 Insomnia, unspecified; N18.9 Chronic kidney disease, unspecified; Z86.73 Personal history of transient ischemic attack (TIA), and cerebral infarction without residual deficits; I25.2 Old myocardial infarction; Z86.79 Personal history of other diseases of the circulatory system; Z95.1 Presence of aortocoronary bypass graft
CPT/HCPCS: 33249; 36005; 36415; 71045; 75820; 80048; 80061; 82553; 83735; 83880; 84439; 84443; 85025; 93005; 93306; 93798; 99152; 99153; C1777; C1786; J0690; J1650; J1940; J2250; J3010; J3490; Q9967

== ENCOUNTER 2022-09-23 04:01 | Emergency (ER) | payer MEDICARE, BC ==
[2022-09-23 05:13] LABS: #Basophils 0.1 thou/uL (0.0-0.2); #Eosinphils 0.1 thou/uL (0.0-0.7); #Lymphocytes 1.3 thou/uL (1.20-3.40); #Monocytes 0.5 thou/uL (0.11-0.59); #Neutrophils 8.7 thou/uL (1.40-6.50); %Basophils 0.6 % (0.0-1.0); %Lymphocytes 11.8 % (21.0-51.0); %Monocytes 4.6 % (0.0-10.0); %Neutrophils 82.1 % (42.0-75.0); Hemoglobin 15.5 g/dL (14.0-18.0); Mean Corpuscular HGB CONC 33.9 g/dL (32.0-36.0); Mean Corpuscular Hemoglobin 32.2 pg (27.0-31.0); Mean Platelet Volume 8.2 fL (7.4-10.4); Platelet Count 142 10x3/uL (130-400); RBC Distribution Width 12.2 % (11.5-14.5); Red Blood Cell (RBC) Count 4.82 mill/uL (4.70-6.10); White Blood Cell (WBC) Count 10.6 10x3/uL (4.8-10.8)
[2022-09-23 05:35] LABS: ALT (SGPT) 16 U/L (8-55); AST (SGOT) 15 U/L (5-34); Albumin 3.8 g/dL (3.4-4.8); Alkaline Phosphatase 70 U/L (40-110); Anion Gap 13 mmol/L (10-20); BUN (Urea Nitrogen) 19 mg/dL (8.4-25.7); Bilirubin, Total 0.6 mg/dL (0.2-1.2); Calc. Creatinine Clearance 0 mL/min (70-130); Calcium 9.4 mg/dL (7.8-10.44); Carbon Dioxide 22 mmol/L (23-31); Chloride 108 mmol/L (98-107); Estimated GFR 68; Globulin 3.4 g/dL (2.4-3.5); Glucose 154 mg/dL (83-110); Magnesium 2.5 mg/dL (1.6-2.6); Potassium 4.1 mmol/L (3.5-5.1); Protein, Total 7.2 g/dL (5.8-8.1); Sodium 139 mmol/L (136-145)
== END 2022-09-23 06:53 | disposition home or self-care (01) ==
LOC: ERS 04:01
DX: R40.4 Transient alteration of awareness (principal); I10 Essential (primary) hypertension; Z86.73 Personal history of transient ischemic attack (TIA), and cerebral infarction without residual deficits
CPT/HCPCS: 36415; 70450; 71045; 80053; 83735; 84484; 85025; 93005